=== PATIENT | male | born 1980 | race Caucasian/White ===

== ENCOUNTER 2020-01-15 15:39 | Emergency (ER) | payer OTHER ==
[2020-01-15] MEDS ORDERED: Aspirin Chewable 81 MG TAB ONE (15:57)
[2020-01-15 16:07] LABS: #Basophils 0.1 thou/uL (0.0-0.2); #Eosinphils 0.3 thou/uL (0.0-0.7); #Lymphocytes 2.5 thou/uL (1.20-3.40); #Monocytes 0.7 thou/uL (0.11-0.59); #Neutrophils 4.9 thou/uL (1.40-6.50); %Basophils 1.5 % (0.0-1.0); %Eosinophils 3.7 % (0.0-10.0); %Lymphocytes 29.6 % (21.0-51.0); %Monocytes 7.8 % (0.0-10.0); %Neutrophils 57.4 % (42.0-75.0); Hemoglobin 15.2 g/dL (14.0-18.0); Mean Corpuscular HGB CONC 30.5 g/dL (32.0-36.0); Mean Corpuscular Volume 88.6 fL (78.0-98.0); Platelet Count 209 thou/uL (130-400); RBC Distribution Width 14.6 % (11.5-14.5); Red Blood Cell (RBC) Count 5.63 mill/uL (4.70-6.10); White Blood Cell (WBC) Count 8.5 thou/uL (4.8-10.8)
[2020-01-15 16:22] LABS: ALT (SGPT) 74 U/L (8-55); AST (SGOT) 38 U/L (5-34); Albumin 4.7 g/dL (3.5-5.0); Alkaline Phosphatase 109 U/L (40-110); Anion Gap 17 mmol/L (10-20); BUN (Urea Nitrogen) 11 mg/dL (8.9-20.6); Bilirubin, Total 0.5 mg/dL (0.2-1.2); CK (CPK) 212 U/L (30-200); Calc. Creatinine Clearance 0 mL/min (70-130); Calcium 9.5 mg/dL (7.8-10.44); Carbon Dioxide 22 mmol/L (22-29); Chloride 107 mmol/L (98-107); Estimated GFR-MDRD Greater than 90; Globulin 2.8 g/dL (2.4-3.5); Glucose 106 mg/dL (70-105); Lipase 21 U/L (8-78); Potassium 4.5 mmol/L (3.5-5.1); Protein, Total 7.5 g/dL (6.0-8.3); Sodium 141 mmol/L (136-145)
--- NOTE | 2020-01-15 19:52 | RAD ---
PORTABLE CHEST: 01/15/20 An AP portable film at 1606 is presented with no prior films available for comparison. The heart is normal in size and the lungs are clear. No infiltrate, effusion, or vascular congestion was seen. The mediastinum appears normal. IMPRESSION: No acute finding. POS: HOME
== END 2020-01-15 16:47 | disposition home or self-care (01) ==
LOC: BURERS 15:39
DX: R07.9 Chest pain, unspecified (principal); I10 Essential (primary) hypertension; F17.210 Nicotine dependence, cigarettes, uncomplicated
CPT/HCPCS: 71045; 80053; 82550; 83690; 84484; 85025; 93005